=== PATIENT | female | born 1985 | race Caucasian/White ===

== ENCOUNTER 2016-12-14 20:04 | Emergency (ER) | payer OTHER ==
[2016-12-14 20:12] VITALS: BP 122/88
--- NOTE | 2016-12-14 20:12 | ED Physician Documentation ---
PD HPI UPPER EXT INJURY - Stated complaint Stated Complaint: LEFT HAND PX - History obtained from History obtained from: Patient, Family - History of Present Illness Location: Left (Right-handed woman, No possibility of , she injured her right wrist while assisting her who had a seizure tonight and complains of pain in the area of the proximal thumb and scaphoid. No other injuries.) Review of Systems Constitutional: reports: Reviewed and negative Cardiac: reports: Reviewed and negative Respiratory: reports: Reviewed and negative PD PAST MEDICAL HISTORY - Past Medical History Neuro: Headache/migraine VACCINE MANAGER: Endometriosis - Past Surgical History Past Surgical History: Yes General: Appendectomy /VACCINE MANAGER: section, Endometrial ablation - Present Medications Home Medications: Ambulatory Orders Medication Instructions Recorded Confirmed Rizatriptan Benzoate [Maxalt] 5 mg PO PRN PRN 12/14/16 12/14/16 - Allergies Allergies/Adverse Reactions: Allergies Allergy/AdvReac Type Severity Reaction Status Date / Time No Known Drug Allergies Allergy Verified 02/05/15 21:58 - Social History Does the pt smoke?: No Smoking Status: Never smoker Does the pt drink ETOH?: Yes Does the pt have substance abuse?: No PD ED PE NORMAL - Vitals Vital signs reviewed: Yes - General General: Alert and oriented X 3, No acute distress - Extremities Extremities: Other (Left wrist is focally tender over the scaphoid without deformity, pain with axial loading of the thumb, but is able to range it. In in the hand.) - Neuro Neuro: Alert and oriented X 3, Normal speech - Psych Psych: Normal mood, Normal affect Results - Vitals Vitals: Vital Signs - 24 hr 12/14/16 20:07 Temperature 36.8 C Heart Rate 88 Respiratory 16 Rate Blood Pressure 122/88 H O2 Saturation 98 Oxygen O2 Source Room air - Rads (name of study) L wrist 4v Radiology: EMP read contemporaneously (normal) Procedures - Splint (location) L wrist Splint applied by: Tech Type of splint: Fiberglass, Short arm, Thumb spica Other: Patient tolerated well, No complications, Neurovascular intact Departure - Departure Disposition: 01 Home, Self Care Clinical Impression: Left wrist sprain Qualifiers: Encounter type: initial encounter Qualified Code(s): S63.502A - Unspecified sprain of left wrist, initial encounter Condition: Good Record reviewed to determine appropriate education?: Yes Instructions: ED Sprain Wrist Comments: As discussed, there is a bone right where you are hurting called the scaphoid that sometimes is fractured despite a negative x-ray initially. Please keep the splint on and dry and follow-up with Dr. De Los Santos in 1 week for reevaluation and potentially further imaging. Your blood pressure was elevated today on check into the emergency department. This does not mean that you have hypertension, it is a common phenomenon to come to the emergency department and have elevated blood pressure. I recommend that she see her primary care physician within the week to have it rechecked when you are feeling better.
--- NOTE | 2016-12-14 21:09 | XRAY Preliminary Report ---
Exam: XR Wrist 4 View LT IMPRESSION: Normal wrist radiography. [facility] SITE ID: [id number]
--- NOTE | 2016-12-14 21:12 | XRAY Report ---
EXAM: LEFT WRIST RADIOGRAPHY EXAM DATE: 12/14/2016 08:32 PM. CLINICAL HISTORY: Left wrist injury, rule out fracture. COMPARISON: None. TECHNIQUE: 4 views. FINDINGS: Bones: Normal. No fractures or bone lesions. Joints: Normal. No subluxations. Soft Tissues: Normal. No soft tissue swelling. IMPRESSION: Normal wrist radiography. [facility] Referring Provider Line: [phone] SITE ID: [id number]
== END 2016-12-14 21:42 | disposition home or self-care (01) ==
LOC: ED 20:04
DX: S63.502A Unspecified sprain of left wrist, initial encounter (principal); X50.1XXA Overexertion from prolonged static or awkward postures, initial encounter; Y93.89 Activity, other specified; R03.0 Elevated blood-pressure reading, without diagnosis of hypertension
CPT/HCPCS: 29125; 99283

== ENCOUNTER 2020-03-09 19:27 | Emergency (ER) | payer OTHER ==
--- NOTE | 2020-03-09 19:50 | ED Physician Documentation ---
History of Present Illness - Stated complaint Stated Complaint: RIB/BACK PX - Chief complaint Chief Complaint: Back Pain - History obtained from History obtained from: Patient - Additonal information Additional information: Patient comes emergency department complaining of right lateral rib pain which occurred after falling while carrying a TV 6 days ago. Patient states she has been having increasing pain in the general area and that is what prompted her to come in at this time. No shortness of breath, though it does hurt to take a deep breath. No cough or fever. No other injuries. No other complaints at this time. Review of Systems Ten Systems: 10 systems reviewed and negative Constitutional: denies: Fever Eyes: reports: Reviewed and negative Ears: reports: Reviewed and negative Nose: reports: Reviewed and negative Throat: reports: Reviewed and negative Cardiac: reports: Chest pain / pressure (Chest wall pain, right) Respiratory: denies: Dyspnea, Cough GI: denies: Abdominal Pain : reports: Reviewed and negative Skin: reports: Reviewed and negative Musculoskeletal: reports: Reviewed and negative Neurologic: reports: Reviewed and negative Psychiatric: reports: Reviewed and negative Endocrine: reports: Reviewed and negative Immunocompromised: reports: Reviewed and negative PD PAST MEDICAL HISTORY - Past Medical History FUNCTIONAL MENTAL DISABILITY TEACHER: Endometriosis - Past Surgical History Past Surgical History: Yes General: Appendectomy /FUNCTIONAL MENTAL DISABILITY TEACHER: section, Endometrial ablation - Present Medications Home Medications: Ambulatory Orders Medication Instructions Recorded Confirmed Rizatriptan Benzoate [Maxalt] 5 mg PO PRN PRN 12/14/16 12/14/16 Cyclobenzaprine [Flexeril] 10 mg PO TID PRN #20 tablet 03/09/20 - Allergies Allergies/Adverse Reactions: Allergies Allergy/AdvReac Type Severity Reaction Status Date / Time No Known Drug Allergies Allergy Verified 02/05/15 21:58 - Social History Does the pt smoke?: No Smoking Status: Never smoker Does the pt drink ETOH?: Yes Does the pt have substance abuse?: No PD ED PE NORMAL - Vitals Vital signs reviewed: Yes - General General: Alert and oriented X 3, No acute distress (Patient is well-appearing and speaking without difficulty. She is sitting up in bed), Well developed/nourished - HEENT HEENT: Atraumatic, PERRL, EOMI, Moist mucous membranes - Neck Neck: Supple, no meningeal sign - Cardiac Cardiac: RRR, No murmur, Strong equal pulses - Respiratory Respiratory: No respiratory distress, Clear bilaterally - Abdomen Abdomen: Soft, Non tender, Non distended - Back Back: No spinal TTP, Other (Palpable muscle spasm along R trapezius distribution and right thoracic paraspinal musculature. No step-off. Patient has mild tenderness over her sternum.) - Derm Derm: Normal color, Warm and dry, No rash - Extremities Extremities: No deformity, No edema, No calf tenderness / cord - Neuro Neuro: Alert and oriented X 3, borematic operator 2-12 intact, No motor deficit, No sensory deficit, Normal speech - Psych Psych: Normal mood, Normal affect Results - Vitals Vitals: Vital Signs - 24 hr 03/09/20 03/09/20 19:29 20:44 Temperature 36.6 C Heart Rate 85 81 Respiratory 16 16 Rate Blood Pressure 144/81 H 134/76 H O2 Saturation 100 98 Oxygen O2 Source Room air - Rads (name of study) R rib/chest XR Radiology: Final report received, EMP read indepedently, See rad report (Negative) PD MEDICAL DECISION MAKING - ED course Complexity details: reviewed results, re-evaluated patient, considered differential, d/w patient ED course: The patient was worked up with a right rib and chest x-ray series, Which was read as negative officially by the radiologist. I have given the patient prepacks of Flexeril and Vicodin which she may take along with her ibuprofen. We have discussed home management of the symptoms, as well as usual indications for return. Departure - Departure Disposition: 01 Home, Self Care Clinical Impression: Muscle spasm Strain of chest wall Qualifiers: Encounter type: initial encounter Qualified Code(s): S29.011A - Strain of muscle and tendon of front wall of thorax, initial encounter Condition: Stable Instructions: ED Strain Chest Wall Ch Prescriptions: Cyclobenzaprine [Flexeril] 10 mg PO TID PRN #20 tablet PRN Reason: Spasms Comments: Your chest x-ray and rib x-ray series were read as negative by the radiologist. Most likely, you have strained your chest wall during the fall, and this was exacerbated by the half marathon that you did. You have been found to have some muscle spasm along the right side of your upper and mid back compared with the left, and this is most likely part of the cause of the pain, as well. You may take ibuprofen, as well as the muscle relaxer and pain medicine you. Please follow-up with your primary care physician as needed. Discharge Date/Time: 03/09/20 20:44
--- NOTE | 2020-03-09 20:22 | XRAY Report ---
PROCEDURE: Ribs w/PA Chest RT INDICATIONS: R rib trauma/pain TECHNIQUE: 2 views of the right ribs were acquired, along with a single view chest. COMPARISON: None. FINDINGS: Surgical changes and devices: None. Bones and chest wall: No displaced rib fractures identified. No suspicious bony lesions. Overlying soft tissues appear unremarkable. Lungs and pleura: No pleural effusions or pneumothorax. Lungs appear clear. Mediastinum: Mediastinal contours appear normal. Heart size is normal. IMPRESSION: 1. No displaced rib fracture identified. Reviewed by: Ab Foley MD on 03/09/2020 8:20 PM PDT Approved by: Ab Foley MD on 03/09/2020 8:20 PM PDT Station ID: [id number]
[2020-03-09] MEDS ORDERED: HYDROcod/ACET 5/325 Prepack 4 PO STA (20:25)
[2020-03-09] MEDS ORDERED: CYCLOBENZAPRINE 10 MG Prepack 2 PO PRN (20:25)
[2020-03-09 20:44] VITALS: BP 134/76
== END 2020-03-09 20:44 | disposition home or self-care (01) ==
LOC: ED 19:27
DX: M62.838 Other muscle spasm (principal); S29.011A Strain of muscle and tendon of front wall of thorax, initial encounter; W01.0XXA Fall on same level from slipping, tripping and stumbling without subsequent striking against object, initial encounter; Y93.89 Activity, other specified
CPT/HCPCS: 99283; 99284

== ENCOUNTER 2020-04-26 16:53 | Outpatient (CLI) | payer OTHER ==
--- NOTE | 2020-04-26 19:12 | XRAY Report ---
PROCEDURE: Lumbar Spine 2 View INDICATIONS: LOW BACK PAIN, CHRONIC TECHNIQUE: 3 views of the lumbar spine were acquired. COMPARISON: None. FINDINGS: Bones: 5 [id number] vertebrae are present. Bilateral pars defect at L5 level is seen with gr isabel 1 anterolisthesis of L5 on S1 measures 1 cm in distance.. No vertebral body compression fracture s. No suspicious bony lesions. Soft tissues: Overlying bowel gas pattern is normal. No suspicious soft tissue calcifications. IMPRESSION: Bilateral pars defect at L5 level with 1 cm anterolisthesis of L5 on S1. No compression fracture. Reviewed by: León Gallo MD on 04/26/2020 6:11 PM [place] Approved by: León Gallo MD on 04/26/2020 6:11 PM [facility] Station ID: [id number]
== END 2020-04-26 16:54 | disposition home or self-care (01) ==
LOC: DI 16:53
PROVIDERS: ATTEND Nurse Practitioner Family
DX: M54.5 Low back pain (principal); G89.29 Other chronic pain
CPT/HCPCS: 72100

== ENCOUNTER 2021-02-01 08:00 | Outpatient (CLI) | payer OTHER ==
[2021-02-01 17:55] LABS: BASOPHILS % (AUTO) 0.5 %; EOSINOPHILS # (AUTO) 0.1 10^3/uL (0.0-0.7); HCT - HEMATOCRIT 43.3 % (37.0-47.0); HGB - HEMOGLOBIN 14.3 g/dL (12.0-16.0); LYMPHOCYTES # (AUTO) 2.9 10^3/uL (1.5-3.5); MEAN CORPUSCULAR HEMOGLOBIN 29.8 pg (27.0-31.0); MEAN CORPUSCULAR VOLUME 90.2 fL (81.0-99.0); MEAN PLATELET VOLUME 10.5 fL (7.9-10.8); MONOCYTES # (AUTO) 0.6 10^3/uL (0.0-1.0); MONOCYTES % (AUTO) 6.9 %; NEUTROPHILS # (AUTO) 4.7 10^3/uL (1.5-6.6); NEUTROPHILS % (AUTO) 56.5 %; PLT - PLATELET COUNT 290 10^3/uL (130-450); RED CELL DISTRIBUTION WIDTH 12.3 % (12.0-15.0); WHITE BLOOD COUNT 8.3 x10^3/uL (4.8-10.8)
[2021-02-01 18:07] LABS: ALBUMIN 4.6 g/dL (3.2-5.5); ALBUMIN/GLOBULIN RATIO 1.6 (1.0-2.2); BILIRUBIN,TOTAL 0.8 mg/dL (0.2-1.0); CALCIUM 9.3 mg/dL (8.5-10.3); CREATININE 0.7 mg/dL (0.4-1.0); POTASSIUM 3.9 mmol/L (3.5-5.0); TOTAL PROTEIN 7.5 g/dL (6.7-8.2)
[2021-02-01 18:25] LABS: THYROID STIMULATING HORMONE 1.83 uIU/mL (0.34-5.60)
[2021-02-01 18:31] LABS: PROLACTIN 8.69 ng/mL
[2021-02-01 18:54] LABS: FOLLICLE STIMULATING HORMONE 6.34 mIU/mL
[2021-02-01 19:03] LABS: HCG,QUALITATIVE BLOOD NEGATIVE
== END 2021-02-01 23:59 | disposition home or self-care (01) ==
LOC: LAB.WCP 08:00
PROVIDERS: ATTEND Family Medicine
DX: Z00.00 Encounter for general adult medical examination without abnormal findings (principal); N91.2 Amenorrhea, unspecified
CPT/HCPCS: 36415; 80053; 83001; 84146; 84443; 84703; 85025